=== PATIENT | female | born 1985 | race Caucasian/White ===

== ENCOUNTER → 2016-12-04 | Outpatient (CLI) | payer OTHER ==
[~2016-12-04] MED LIST: NORCO 5-325 TA1 EACH PO
== END ==
LOC: OPSV2 10:00
DX: Z01.812 Encounter for preprocedural laboratory examination (principal); M67.432 Ganglion, left wrist; Z98.51 Tubal ligation status; Z88.0 Allergy status to penicillin; Z88.2 Allergy status to sulfonamides

== ENCOUNTER → 2016-12-05 | Day surgery (SDC) | payer OTHER | END | disposition home or self-care (01) | LOC: OR 09:42 | PROVIDERS: Orthopaedic Surgery | PROC: 0LB60ZZ Excision of Left Lower Arm and Wrist Tendon, Open Approach (ICD-10-PCS; principal; 2016-12-05 14:15) | DX: M67.432 Ganglion, left wrist (principal); J45.909 Unspecified asthma, uncomplicated; F41.9 Anxiety disorder, unspecified; F17.210 Nicotine dependence, cigarettes, uncomplicated; Z82.49 Family history of ischemic heart disease and other diseases of the circulatory system; Z83.3 Family history of diabetes mellitus; Z88.0 Allergy status to penicillin; Z88.2 Allergy status to sulfonamides; Z90.49 Acquired absence of other specified parts of digestive tract; Z98.51 Tubal ligation status | CPT/HCPCS: J1100; J2250; J2405; J3010; J7120 ==

== ENCOUNTER → 2021-07-30 | Outpatient (CLI) | payer OTHER ==
[~2021-07-30] MED LIST changes: +AZITHROMYCIN500 MG PO; +OMNICEF 300 MG300 MG PO; +PREDNISONE20 MG PO; +PROAIR HFA8.5 GM INH; +TESSALON PERLE100 MG PO; +ZOFRAN ODT 4 MG4 MG SL
== END ==
LOC: KOH-I 14:28
DX: M25.531 Pain in right wrist (principal); M79.631 Pain in right forearm; S52.611A Displaced fracture of right ulna styloid process, initial encounter for closed fracture
CPT/HCPCS: 73090; 73110

== ENCOUNTER 2022-03-14 23:03 | Emergency (ER) | payer OTHER | END 2022-03-15 00:20 | disposition home or self-care (01) | LOC: ER1 23:03 | DX: S60.221A Contusion of right hand, initial encounter (principal); F17.210 Nicotine dependence, cigarettes, uncomplicated; W01.0XXA Fall on same level from slipping, tripping and stumbling without subsequent striking against object, initial encounter | CPT/HCPCS: 73130; 99283 ==